=== PATIENT | female | born 1945 | race Caucasian/White ===

== ENCOUNTER 2021-03-06 05:26 | Day surgery (SDCO) | payer OTHER ==
[~2021-03-06] VITALS: Ht 155 cm; Wt 67.0 kg
[~2021-03-06 05:26] MED LIST: ALPRAZOLAM 0.0.25 MG PO; BENADRYL25 MG PO; BREO ELLIPTA 11 EACH INH; CALCIUM + D3 E1 EACH PO; DESYREL50 MG PO; FLUOXETINE HCL20 MG PO; LISINOPRIL10 MG PO; PANTOPRAZOLE SO40 MG PO; QUETIAPINE FUMA25 MG PO; SIMVASTATIN20 MG PO
[2021-03-06] MEDS ORDERED: PERCOCET 5-3251 EACH PO (07:03)
--- NOTE | 2021-03-06 12:59 | NUR ---
PT. HAD A RTKR THIS DATE. SHE HAS A ROLLING WALKER. PT. REQUESTS HH. SHE WILL D/C HOME WITH SPOUSE.
[2021-03-07 07:23] LABS: BASOPHIL 0 % (0-2); EOSINOPHIL 0 % (0-7); HCT 31.4 % (37.0-47.0); LYMPHOCYTE 8.2 % (15-48); MCH 31.1 pg (25.0-31.0); MCHC 31.8 g/dL (32.0-36.0); MCV 97.5 fL (78.0-100.0); MONOCYTE 9.4 % (0-12); MPV 11.5 fL (6.0-9.5); NRBC 0; PLT 141 K/uL (150-400); RBC 3.22 M/uL (4.20-5.40); RDW 13.4 % (11.5-14.0); WBC 6.8 K/uL (4.0-10.5)
[2021-03-07 08:43] LABS: POTASSIUM 5.1 mmol/L (3.5-5.1)
[2021-03-07] MEDS ORDERED: FEOSOL325 MG PO (09:04)
[2021-03-07] MEDS ORDERED: ASPIRIN81 MG PO (09:04)
--- NOTE | 2021-03-07 14:33 | NUR ---
PT HAS BEEN CHANGED TO OBSERVATION SHE WILL BE STAYING DUE TO LOW BLOOD PRESSURE AND THAT PT IS ON O2 AND CANNOT BE WEANED.
[2021-03-08 06:04] LABS: BASOPHIL 0.4 % (0-2); EOSINOPHIL 0.9 % (0-7); HCT 28.9 % (37.0-47.0); HGB 9.2 g/dl (12.5-16.0); LYMPHOCYTE 8.3 % (15-48); MCH 30.8 pg (25.0-31.0); MCHC 31.8 g/dL (32.0-36.0); MCV 96.7 fL (78.0-100.0); MONOCYTE 10.7 % (0-12); MPV 11.6 fL (6.0-9.5); NEUTROPHIL 79.3 % (41-80); NRBC 0; PLT 111 K/uL (150-400); RBC 2.99 M/uL (4.20-5.40); WBC 5.3 K/uL (4.0-10.5)
[2021-03-08 06:33] LABS: BUN/CREAT RATIO (CALC) 14.8 RATIO; CREATININE 0.88 mg/dL (0.51-0.95)
[2021-03-08] MEDS ORDERED: DULERA 100 MCG8.8 GM INH (10:33)
== END 2021-03-08 11:27 | disposition home health service (06) ==
LOC: FMS 05:26 → FAS 05:26 → FMS 08:05 → FAS 12:00 → FMS 03-07 15:08
PROVIDERS: Nurse Practitioner Adult Health; ADMIT Orthopaedic Surgery
DX: M17.11 Unilateral primary osteoarthritis, right knee (principal); E78.5 Hyperlipidemia, unspecified; K21.9 Gastro-esophageal reflux disease without esophagitis; I95.9 Hypotension, unspecified; R09.02 Hypoxemia; Z79.82 Long term (current) use of aspirin; Z88.5 Allergy status to narcotic agent; Z98.84 Bariatric surgery status; I10 Essential (primary) hypertension; Z20.822 Contact with and (suspected) exposure to COVID-19; R94.31 Abnormal electrocardiogram [ECG] [EKG]
CPT/HCPCS: 36415; 73560; 80048; 85025; 86850; 86900; 86901; 94010; 94640; 94760; 94762; 97162; 97166; 97530-GP; 97535; C1713; C1776; G0378; J0171; J0697; J0735; J1100; J1170; J1885; J2001; J2250; J2405; J2704; J2795; J3010; J7030; J7040; J7120